=== PATIENT | female | born 1990 ===

== ENCOUNTER 2019-11-05 06:00 | Outpatient (CLI) | payer OTHER | END 2019-11-05 06:07 | disposition home or self-care (01) | LOC: LAB 06:00 → ADM 11-07 14:45 → EDSTATUS 11-08 14:45 → AMB-ENDOS 11-08 14:45 | PROVIDERS: ATTEND Surgery | DX: K21.9 Gastro-esophageal reflux disease without esophagitis (principal); R10.13 Epigastric pain; Z20.828 Contact with and (suspected) exposure to other viral communicable diseases ==